=== PATIENT | female | born 2000 | race Caucasian/White ===

== ENCOUNTER 2022-02-26 13:32 | Emergency (ER) | payer OTHER, SELFPAY ==
--- NOTE | ~2022-02-26 | US_ITS ---
EXAMINATION: US PELVIS CLINICAL INFORMATION: Right lower quadrant pain with ovarian cyst and question of torsion COMPARISON: CT scan performed earlier today TECHNIQUE: Ultrasound of the pelvis is performed using both transabdominal and transvaginal transducers along with Doppler. Transvaginal imaging is performed due to inadequate visualization transabdominally. FINDINGS: Uterus: The uterus is anteverted and measures 8.2 x 4.0 x 5.4 cm. The double wall endometrial thickness is 1.2 mm. The uterus is smooth in contour and has normal myometrial echogenicity. No visible fibroid. Adnexa: Both ovaries are visualized. There is equal normal color flow to the adnexa. There is no ovarian torsion. There is no pelvic ascites or fluid collection. Right ovary measures 5.9 x 5.7 x 5.9 cm for a volume of 104 mL which includes a 5.3 x 4.9 x 4.9 cm cyst seen on the earlier CT. Left ovary measures 3.0 x 1.9 x 2.5 cm for a volume of 7.5 mL. Trace free fluid is present in the cul-de-sac US/US pelvic ovarian doppler IMPRESSION: Redemonstrated right ovarian cyst. Both ovaries demonstrate normal flow without any suggestion of torsion.
--- NOTE | ~2022-02-26 | CT_ITS ---
EXAMINATION: CT ABDOMEN AND PELVIS WITHOUT CONTRAST CLINICAL INFORMATION: Right flank pain. Evaluate for appendicitis or kidney stone. COMPARISON: None TECHNIQUE: Multidetector volumetric imaging was performed from the superior aspect of the liver through the pubic symphysis. Sagittal and coronal reformatted images were obtained on the technologist's workstation. This CT examination was performed using dose optimization techniques as appropriate, variously including the following: *Automated exposure control *Adjustment of mA and/or kV according to patient size (this includes techniques or standardized protocols for targeted exams where dose is matched to indication/reason for exam; i.e. extremities or head) *Use of iterative reconstruction technique DLP: 692 mGy-cm FINDINGS: LUNG BASES: The visualized lung bases are unremarkable. LIVER, GALLBLADDER, AND BILIARY TREE: The liver is normal in size, shape, and attenuation. No focal hepatic lesion or biliary ductal dilatation is present. Gallbladder unremarkable. PANCREAS: Unremarkable. SPLEEN: Unremarkable. ADRENAL GLANDS: Unremarkable. KIDNEYS AND URETERS: The kidneys are normal in size, shape, and attenuation. No hydronephrosis, hydroureter, or calculi seen. No perinephric stranding. BLADDER: Unremarkable. GASTROINTESTINAL TRACT: The small and large bowel are unremarkable. The appendix is normal. ABDOMINAL WALL: No significant hernia is appreciated. LYMPH NODES: Normal. VASCULAR: Unremarkable. PELVIC VISCERA: There is a 5.7 cm cyst in the right ovary. Left ovary and uterus are unremarkable. OSSEOUS STRUCTURES: Unremarkable. CT/CT abdomen pelvis wo con IMPRESSION: * Normal appendix. * No urinary calculi or hydronephrosis. * Right ovarian cyst measuring 5.7 cm. Given the patient's right abdominal pain, consider pelvic ultrasound to exclude torsion.
--- NOTE | ~2022-02-26 | US_ITS ---
EXAMINATION: US PELVIS CLINICAL INFORMATION: Right lower quadrant pain with ovarian cyst and question of torsion COMPARISON: CT scan performed earlier today TECHNIQUE: Ultrasound of the pelvis is performed using both transabdominal and transvaginal transducers along with Doppler. Transvaginal imaging is performed due to inadequate visualization transabdominally. FINDINGS: Uterus: The uterus is anteverted and measures 8.2 x 4.0 x 5.4 cm. The double wall endometrial thickness is 1.2 mm. The uterus is smooth in contour and has normal myometrial echogenicity. No visible fibroid. Adnexa: Both ovaries are visualized. There is equal normal color flow to the adnexa. There is no ovarian torsion. There is no pelvic ascites or fluid collection. Right ovary measures 5.9 x 5.7 x 5.9 cm for a volume of 104 mL which includes a 5.3 x 4.9 x 4.9 cm cyst seen on the earlier CT. Left ovary measures 3.0 x 1.9 x 2.5 cm for a volume of 7.5 mL. Trace free fluid is present in the cul-de-sac US/US pelvic and transvaginal IMPRESSION: Redemonstrated right ovarian cyst. Both ovaries demonstrate normal flow without any suggestion of torsion.
[2022-02-26 15:30] VITALS: BP 128/67; PULSE 69; RESP 18; TEMP 36.3; O2SAT 98; BMI 28.3
[2022-02-26 15:58] LABS: Appearance Urine CLEAR; Color Urine YELLOW; Glucose Urine UA NEG (NEG); Leukocyte Esterase Urine TRACE (NEG); Nitrite Urine NEG (NEG); PH 5.5 (5.0-8.0); Specific Gravity - Urine >= 1.030 (1.005-1.025); Urine Blood NEG (NEG); Urine Ketones 40 MG/DL (NEG); Urine Protein NEG (NEG-TRACE)
[2022-02-26 16:00] LABS: UPreg QC Valid YES; Urine Pregnancy NEGATIVE (NEGATIVE)
[2022-02-26 16:12] LABS: Bacteria Urine 1+ /LPF; RBC Urine 0-2 /HPF (0); Squamous Epithelial Cell Urine 1+ /LPF; WBC Urine 0-2 /HPF (0-4)
[2022-02-26 19:00] LABS: MANUAL DIFF FLAG NO
[2022-02-26 19:01] LABS: Basophils Percent Auto 0.3 % (0-2); Eosinophils Percent Auto 0.2 % (0-4); Hematocrit 40.9 % (37.0-47.0); Hemoglobin 13.8 g/dl (12.0-16.0); Imm Gran Abs Auto 0.01 X10*3/uL (0.00-0.03); Imm Gran Pct Auto 0.2 % (0.0-0.4); Lymphocytes Absolute Auto 1.8 X10*3/uL (1.2-4.9); Lymphocytes Percent Auto 28.1 % (20-40); Mean Corpuscular HGB Conc 33.7 g/dl (31.0-35.0); Mean Corpuscular Volume 83.1 fL (80.0-98.0); Mean Platelet Volume 9.3 fL (9.4-12.3); Monocytes Absolute Auto 0.3 X10*3/uL (0.1-1.2); Monocytes Percent Auto 4.9 % (2-11); Neutrophils Absolute Auto 4.3 x10*3/uL (2.0-8.3); Neutrophils Percent Auto 66.3 % (45-73); Platelet Count 383 X10*3/uL (160-400); Red Blood Count 4.92 X10*6/uL (4.20-5.50); Red Cell Distribution Width 13.7 % (11.0-16.0); White Blood Count 6.5 X10*3/uL (4.8-10.8)
[2022-02-26 19:16] LABS: Alanine Aminotransferase 22 U/L (0-31); Albumin Level 4.4 g/dL (3.5-5.0); Alkaline Phosphatase 77 U/L (39-117); Anion Gap 11 (12-20); Aspartate Amino Transferase 22 U/L (5-31); Bilirubin Total 0.5 mg/dL (0.0-1.0); Blood Urea Nitrogen 13 mg/dL (9-16); Calcium 9.5 mg/dL (8.4-10.2); Carbon Dioxide 23 mmol/L (22-29); Chloride 104 mmol/L (96-108); Creatinine Clr Calc Pharmacy 109.8; Estimated Glomerular Filt Rate > 60; Glucose Random 99 mg/dL (60-115); Potassium 4.4 mmol/L (3.3-5.1); Sodium 134 mmol/L (135-145); Total Protein 7.6 g/dL (6.5-8.0)
--- NOTE | 2022-02-26 22:17 | ED.ABDPAIN ---
HPI - Abdominal Pain General Chief Complaint: Abdominal Pain Stated Complaint: Abd pain Time Seen by Provider: 02/26/22 20:31 Source: patient Mode of arrival: ambulatory Limitations: no limitations History of Present Illness HPI narrative: 21-year-old female who presents emergency department for evaluation of lower abdominal pain and right flank pain. Patient states that around noon she had a sudden onset of severe pain. States the pain radiated across her lower abdomen and she also felt in her right lower back. She states the pain was severe on onset was 10/10. At the time my evaluation the pain was 3/10. She states the pain feels like a cramping sensation the much worse than any menstrual cramps that she has ever had. The patient had associated nausea with no vomiting. She denied fever or chills. She denied chest pain shortness of breath or dyspnea on exertion. She denied diarrhea, bloody stools or black stools. She has had no urinary frequency or dysuria. Patient took ibuprofen with only minimal relief for pain. This is her 1st episode of this type of pain. MD elicited complaint: abdominal pain (Lower abdomen) and flank pain (Right) Pertinent past history: none Onset (ago): hour(s) (2 prior to presenting to the emergency department) Pain Consistency: constant (Waxed and waned in intensity) Location: RUQ and R flank Severity: severe Pain scale (0-10): 10 Quality: cramping Exacerbating factors: nothing Relieving factors: nothing Associated symptoms: nausea Treatments prior to arrival: NSAIDs Related Data Previous Rx's Medication Instructions Recorded ondansetron 4 mg disintegrating 4 mg PO Q6-8H PRN nausea and 02/27/22 tablet vomiting #14 tabs oxycodone 5 mg tablet 5 mg PO Q4H PRN pain #14 tabs 02/27/22 Allergies Allergy/AdvReac Type Severity Reaction Status Date / Time No Known Allergies Allergy Verified 02/26/22 15:29 [No Known Allergies*] Review of Systems Review of Systems Yes all other systems are reviewed and are negative [facility] Past Medical History [facility] Narrative: Past medical history: None. Past surgical history: None. Social history: She denies tobacco use. She occasionally drinks alcohol. She denies drug use. Social History Social History Advance Directives: No Advance Directives Information Provided: No Physical Exam ED Vital Signs: Vital Signs - 24 hr 02/26/22 15:30 02/27/22 00:34 Temperature 97.3 F 98.4 F Pulse Rate 69 68 Respiratory Rate 18 18 Blood Pressure 128/67 114/61 Pulse Oximetry 98 99 Oxygen Delivery Method Room Air Room Air BMI result Body Mass Index 28.3 Const General: cooperative and no acute distress Orientation/consciousness: oriented to person and oriented to place Limitations: no limitations HENMT Head: Yes normal to inspection, Yes normocephalic and Yes atraumatic Ears: external ears normal General nose exam: Normal external nose present Face and sinus: Yes normal facial exam Mouth: Normal oral and palatal mucosa present Throat: Yes posterior oropharynx normal Eyes General: appearance normal, both eyes and all related structures Pupils: Equal, round and reactive pupils present Neck Neck: Yes normal visual inspection, Yes no lymphadenopathy, Yes trachea midline and Yes supple Chest Chest palpation & inspection: normal inspection of the chest and normal palpation of entire chest wall Resp Effort & Inspection: normal respiratory effort and able to speak in complete sentences Auscultation: clear to auscultation bilaterally Cardio Rate: regular rate Rhythm: regular rhythm Heart sounds: S1 normal heart sound present, S2 normal heart sound present and no murmurs GI Inspection: Yes normal to inspection Palpation (GI): Soft to palpation, Tenderness to palpation present (GI) in the RLQ and Rovsing's sign positive (Pain in RLQ with palpation of L LQ and epigastric area) and no guarding Auscultation: normal bowel sounds General: Yes no CVA tenderness Back/Spine/Pelvis Back: no CVA tenderness Skin General skin exam: no rashes or lesions noted Neuro General: oriented to person and oriented to place Cranial nerves: Yes CN's II-XII intact bilaterally and Yes Equal, round and reactive pupils present Cognition (Neuro): normal cognition Motor exam (neuro): 5/5 motor strength present throughout Extrem General: Yes normal to inspection Psych Appearance: grossly normal Speech and movement: Normal speech and movement present Affect: normal affect Attitude: cooperative Thought process: Normal thought process present Thought content: Normal thought content present Course Course Course Narrative: 21-year-old female who presents emergency department for evaluation of sudden onset of abdominal pain which began at noon, the pain was initially 10/10 and is now 3/10 at the time of evaluation. Patient's pain is also located in her right flank area. Patient does have right lower quadrant tenderness and referred pain to right lower quadrant with palpation of her left lower quadrant and epigastric. The patient had a CBC, CMP which were normal. Urinalysis revealed positive blood. Microscopic revealed 2 RBCs, 2 WBCs, 1+ bacteria, 1+ squamous cells. Urine test was negative. Given her abdominal exam, differential includes was not limited to appendicitis, ruptured ovarian cyst, renal colic. She was ordered to get Toradol 30 mg IV and Zofran 4 mg IV. I did order a CT scan of the abdomen pelvis without IV contrast. 2336: Radiology evaluation: CT scan of the abdomen pelvis without IV contrast was interpreted as follows by the radiologist: IMPRESSION: *? Normal appendix. *? No urinary calculi or hydronephrosis. *? Right ovarian cyst measuring 5.7 cm. Given the patient's right abdominal pain, consider pelvic ultrasound to exclude torsion. Dictated By: Bear Carrasco MD The nurse was unable to stop motion IV in the patient therefore she was ordered to get Toradol 60 mg IM and Zofran 4 mg IV. Given the radiology reading, the patient will get an Doppler ultrasound to rule out ovarian torsion. 0124: Duplex pelvic ultrasound of the ovaries was interpreted by the radiologist as follows: IMPRESSION: Redemonstrated right ovarian cyst. Both ovaries demonstrate normal flow without any suggestion of torsion. Dictated By:Abiel Block MD The patient's pain increased after the ultrasound therefore she was given oxycodone 10 mg orally. The patient will be discharged home and advised to take ibuprofen and Tylenol for pain and for pain not relieved by these medications she was given prescription for oxycodone. She was also given prescription for Zofran ODT for her nausea and vomiting. The patient was advised to follow-up with our echo technician for re-evaluation and further treatment of her ovarian cyst. MDM - Abdominal Pain Lab Data Result diagrams: 02/26/22 18:54 02/26/22 18:54 Labs: Lab Results 02/26/22 02/26/22 02/26/22 Range/Units 15:46 15:46 18:54 WBC 6.5 (4.8-10.8) X10*3/uL RBC 4.92 (4.20-5.50) X10*6/uL Hgb 13.8 (12.0-16.0) g/dl Hct 40.9 (37.0-47.0) % MCV 83.1 (80.0-98.0) fL MCH 28.0 (27.0-33.0) pg MCHC 33.7 (31.0-35.0) g/dl RDW 13.7 (11.0-16.0) % Plt Count 383 (160-400) X10*3/uL MPV 9.3 L (9.4-12.3) fL Immature Gran % (Auto) 0.2 (0.0-0.4) % Neut % (Auto) 66.3 (45-73) % Lymph % (Auto) 28.1 (20-40) % [place] % (Auto) 4.9 (2-11) % Eos % (Auto) 0.2 (0-4) % Baso % (Auto) 0.3 (0-2) % Lymph # (Auto) 1.8 (1.2-4.9) X10*3/uL [place] # (Auto) 0.3 (0.1-1.2) X10*3/uL Eos # (Auto) 0.0 (0.0-0.4) X10*3/uL Baso # (Auto) 0.0 (0.0-0.2) X10*3/uL Abs Immat Gran (auto) 0.01 (0.00-0.03) X10*3/uL Absolute Neuts (auto) 4.3 (2.0-8.3) x10*3/uL Absolute Nucleated RBC 0.000 (0.0-0.012) X10*3/uL Nucleated RBC % (auto) 0.0 (0.0-0.2) /100WBC Sodium (135-145) mmol/L Potassium (3.3-5.1) mmol/L Chloride (96-108) mmol/L Carbon Dioxide (22-29) mmol/L Anion Gap (12-20) BUN (9-16) mg/dL Creatinine (0.5-1.4) mg/dL Estim Creat Clear Calc Estimated GFR Random Glucose (60-115) mg/dL Calcium (8.4-10.2) mg/dL Total Bilirubin (0.0-1.0) mg/dL AST (5-31) U/L ALT (0-31) U/L Alkaline Phosphatase (39-117) U/L Total Protein (6.5-8.0) g/dL Albumin (3.5-5.0) g/dL Urine Color YELLOW Urine Appearance CLEAR Urine pH 5.5 (5.0-8.0) Ur Specific [place] >= 1.030 H (1.005-1.025) Urine Protein NEG (NEG-TRACE) MG/DL Urine Glucose (UA) NEG (NEG) MG/DL Urine Ketones 40 (NEG) MG/DL Urine Blood NEG (NEG) Urine Nitrite NEG (NEG) Ur Leukocyte Esterase TRACE H (NEG) Urine RBC 0-2 (0) /HPF Urine WBC 0-2 (0-4) /HPF Ur Squamous Epith Cells 1+ /LPF Urine Bacteria 1+ /LPF Urine Test NEGATIVE (NEGATIVE) 02/26/22 Range/Units 18:54 WBC (4.8-10.8) X10*3/uL RBC (4.20-5.50) X10*6/uL Hgb (12.0-16.0) g/dl Hct (37.0-47.0) % MCV (80.0-98.0) fL MCH (27.0-33.0) pg MCHC (31.0-35.0) g/dl RDW (11.0-16.0) % Plt Count (160-400) X10*3/uL MPV (9.4-12.3) fL Immature Gran % (Auto) (0.0-0.4) % Neut % (Auto) (45-73) % Lymph % (Auto) (20-40) % [place] % (Auto) (2-11) % Eos % (Auto) (0-4) % Baso % (Auto) (0-2) % Lymph # (Auto) (1.2-4.9) X10*3/uL [place] # (Auto) (0.1-1.2) X10*3/uL Eos # (Auto) (0.0-0.4) X10*3/uL Baso # (Auto) (0.0-0.2) X10*3/uL Abs Immat Gran (auto) (0.00-0.03) X10*3/uL Absolute Neuts (auto) (2.0-8.3) x10*3/uL Absolute Nucleated RBC (0.0-0.012) X10*3/uL Nucleated RBC % (auto) (0.0-0.2) /100WBC Sodium 134 L (135-145) mmol/L Potassium 4.4 (3.3-5.1) mmol/L Chloride 104 (96-108) mmol/L Carbon Dioxide 23 (22-29) mmol/L Anion Gap 11 L (12-20) BUN 13 (9-16) mg/dL Creatinine 0.76 (0.5-1.4) mg/dL Estim Creat Clear Calc 109.8 Estimated GFR > 60 Random Glucose 99 (60-115) mg/dL Calcium 9.5 (8.4-10.2) mg/dL Total Bilirubin 0.5 (0.0-1.0) mg/dL AST 22 (5-31) U/L ALT 22 (0-31) U/L Alkaline Phosphatase 77 (39-117) U/L Total Protein 7.6 (6.5-8.0) g/dL Albumin 4.4 (3.5-5.0) g/dL Urine Color Urine Appearance Urine pH (5.0-8.0) Ur Specific [place] (1.005-1.025) Urine Protein (NEG-TRACE) MG/DL Urine Glucose (UA) (NEG) MG/DL Urine Ketones (NEG) MG/DL Urine Blood (NEG) Urine Nitrite (NEG) Ur Leukocyte Esterase (NEG) Urine RBC (0) /HPF Urine WBC (0-4) /HPF Ur Squamous Epith Cells /LPF Urine Bacteria /LPF Urine Test (NEGATIVE) Discharge Plan Discharge Clinical Impression: Abdominal pain, Cyst of right ovary, Nausea Patient Disposition: Home, Self-Care Instructions: Ovarian Cyst (ED) Additional Instructions: Your laboratory evaluation was unremarkable. Your urine test was negative. Your urinalysis was unremarkable. The CT scan of your abdomen pelvis did reveal a right ovarian cyst measuring 5.7 cm. The Doppler ultrasound of your pelvis confirmed that you do have an ovarian cyst but there was no evidence of decreased blood flow to the ovaries (ovarian torsion). Take ibuprofen 200 mg pills, 3 pills every 6 hours as needed for pain. Take Tylenol (acetaminophen) 500 mg pills, 2 pills every 4-6 hours as needed for pain. For pain not relieved by ibuprofen or Tylenol take oxycodone 5 mg pills, 1 pill every 4 hours as needed for pain. Do not drive or work while taking this medication since they can cause sleepiness. Oxycodone is a narcotic medication that can be addicting. If you are concerned about addiction you can ask the pharmacist for less pills or do not get this prescription filled. Follow-up with our on-call echo technician in 1-2 weeks. Please return to the emergency department if your symptoms get worse or if you develop any symptoms that are concerning to you. Prescriptions: New ondansetron 4 mg tablet,disintegrating 4 mg PO Q6-8H PRN (Reason: nausea and vomiting) Qty: 14 0RF oxycodone 5 mg tablet 5 mg PO Q4H PRN (Reason: pain) Qty: 14 0RF Rx Instructions: Patient may request partial fill; Partial Fill upon patient request. Referrals: Andreas Joyce MD [Physician] - 2 weeks (5.7 cm right ovarian cyst, abdominal pain)
[2022-02-26] MEDS: Ketorolac Tromethamine 60 MG/2 ML VIAL IM (23:43)
[2022-02-26] MEDS: Ondansetron ODT 4 MG TAB.RAPDIS TRANSLINGU (23:43)
[2022-02-27 00:34] VITALS: BP 114/61; PULSE 68; RESP 18; TEMP 36.9; O2SAT 99
--- NOTE | 2022-02-27 01:12 | PC.NURSE ---
I assumed nursing care of Marquise upon her arrival to bed 13 from the waiting room. She presents for evaluation of sharp lower abdominal/pelvic pain x 1 day. Marquise is alert, oriented x 3, calm and cooperative. She makes eye contact with staff and is able to adequately verbalize her needs. Respirations are non-labored, RR WNL, room air sat's WNL, no cyanosis, she speaks in full sentences. She has mild nausea, no vomiting. Abdominal/pelvic pain is 4/10 here in the ED but it was much more painful earlier. We were unable to obtain peripheral IV access on Marquise. Joy ACEVEDO was aware and cancelled IV placement and requested pt be given ODT Zofran and IM Toradol. These were given. Pt has had U/S and is currently awaiting dispo. We will continue to monitor Marquise.
[2022-02-27] MEDS: oxyCODONE HCl Immed Release 5 MG TABLET 10 MG PO (01:41)
== END 2022-02-27 01:45 | disposition home or self-care (01) ==
PROVIDERS: Emergency Provider Emergency Medicine Emergency Medical Services
DX: N83.201 Unspecified ovarian cyst, right side (principal); R10.30 Lower abdominal pain, unspecified; R11.0 Nausea
CPT/HCPCS: 36415; 74176; 76830; 76856; 80053; 81001; 81025; 85025; 93975; 96372; 99284; J1885

== ENCOUNTER 2022-03-02 03:07 | Emergency (ER) | payer OTHER, SELFPAY ==
--- NOTE | 2022-03-02 03:24 | PC.NURSE ---
Pt not in [facility] when called to Triage. Security finding pt outside, pt refusing to come inside for Triage @ this time.
== END 2022-03-02 03:34 | disposition left against medical advice (07) ==
PROVIDERS: Emergency Provider Emergency Medicine; PCP Internal Medicine
DX: R10.9 Unspecified abdominal pain (principal)

== ENCOUNTER 2022-03-26 14:15 | Outpatient (REF) | payer OTHER, SELFPAY ==
[2022-03-27 12:32] LABS: CT PCR NOT DETECTED (Not Detect.); NG PCR NOT DETECTED (Not Detect.)
== END 2022-03-26 14:16 | disposition home or self-care (01) ==
LOC: HO.LAB 14:15
PROVIDERS: Visit Provider Obstetrics & Gynecology
DX: N83.209 Unspecified ovarian cyst, unspecified side (principal)
CPT/HCPCS: 87491; 87591; 99212

== ENCOUNTER 2022-07-10 10:28 | Outpatient (REF) | payer OTHER, SELFPAY | END 2022-07-10 10:29 | disposition home or self-care (01) | LOC: HO.US 10:28 | PROVIDERS: Visit Provider Obstetrics & Gynecology | DX: Z13.89 Encounter for screening for other disorder (principal) ==

== ENCOUNTER 2022-07-11 11:31 | Outpatient (REF) | payer OTHER, SELFPAY ==
--- NOTE | ~2022-07-11 | US_ITS ---
EXAMINATION: US PELVIS CLINICAL INFORMATION: Ovarian cyst COMPARISON: 02/26/2022 TECHNIQUE: Ultrasound of the pelvis is performed using both transabdominal and transvaginal transducers. Transvaginal imaging is performed due to inadequate visualization transabdominally. FINDINGS: Uterus: The uterus is anteverted and measures 9 x 4 x 4.9 cm. The double wall endometrial thickness is 0.5 mm. The uterus is smooth in contour and has normal myometrial echogenicity. No visible fibroid. Adnexa: Both ovaries are visualized. There is normal color flow to the adnexa. There is no ovarian torsion. There is no pelvic ascites or fluid collection. Right ovary measures 3.4 x 2.6 x 2.6 cm. 1.4 cm follicle present. No mass. Left ovary measures 3.6 x 2.7 x 1.8 cm. No adnexal mass. US/US pelvic and transvaginal IMPRESSION: Normal pelvic ultrasound.
== END 2022-07-11 11:32 | disposition home or self-care (01) ==
LOC: HO.US 11:31
PROVIDERS: Visit Provider Obstetrics & Gynecology
DX: N83.209 Unspecified ovarian cyst, unspecified side (principal)
CPT/HCPCS: 76830; 76856

== ENCOUNTER → 2022-09-05 08:41 | Outpatient (BNVA) | payer OTHER, SELFPAY | PROVIDERS: PCP Internal Medicine; Visit Provider Obstetrics & Gynecology | DX: N83.209 Unspecified ovarian cyst, unspecified side (principal) | CPT/HCPCS: 99212 ==

== ENCOUNTER 2025-02-03 13:56 | Outpatient (AMB) | payer OTHER, SELFPAY ==
[2025-02-03 13:57] VITALS: BP 124/76; PULSE 56; TEMP 36.9; O2SAT 100; BMI 34.9
--- NOTE | 2025-02-03 13:57 | AM.OFFWIN_ITS ---
Intake Vital Signs 02/03/25 13:57 Height 5 ft 3 in Weight 197 lb BMI 34.9 BP 124/76 Blood Pressure Location Lt brachial Position Sitting Pulse 56 Pulse Source Pulse Oximeter Temp 98.5 F Temp Source Oral Pulse Oximetry (%) 100 Oxygen Delivery Method Room Air Intake Visit Reasons: PE symptoms? Intake Note: nausea, abdominal cramping, LMP: 12/25, breast soreness, frequent urination, positive home test Patient Tobacco Use Status: Never used Tobacco Allergies No Known Allergies (No Known Allergies*) Allergy (Verified 02/03/25 14:03) Do you need a note to return to daycare/school/sports/work: Yes HPI HPI Comments History of Present Illness Details History of Present Illness - The patient is a 24-year-old female pr esenting with verification of . - Reports positive home tests and seeks confirmation of status. - Last menstrual period was on December 25, with symptoms starting approximately one month after the missed period. - Symptoms include nausea, breast tender ness, and mild cramping initially. - No vaginal bleeding or significant abd ominal pain reported. - Scheduled an appointment with an OBGYN on the of this month. - Started taking vitamins. - She denies vaginal bleeding, abd pain, or vaginal discharge. - This is her first . Physical Exam General: Cooperative, healthy appearing, comfortable, no acute distress and well developed Respiratory: Normal respiratory effort and able to speak in complete sentences. Clear to auscultation bilaterally Cardiovascular: Regular rate and rhythm. Normal S1 and S2 GI: Normal to inspection. Soft to palpation and nontender. No guarding or rebound tenderness noted. Patient was informed and verbally consented to the use of an ambient scribe for clinic note documentation during this visit. [facility] Family History Maternal Grandmother Diabetes Brother Asthma Social History Household Members: Family Housing: Apartment Alcohol intake: current Alcohol intake frequency: holidays/special occasions only Patient Tobacco Use Status: Never used Tobacco Sexual orientation: Straight/Heterosexual Gender identity: Female Review of Systems Const All systems reviewed & are unremarkable except as noted in HPI and below Physical Exam Vital Signs: Last Vital Signs Temp 98.5 F 02/03/25 13:57 Pulse 56 02/03/25 13:57 BP 124/76 02/03/25 13:57 Pulse Ox 100 02/03/25 13:57 Oxygen Delivery Method Room Air 02/03/25 13:57 BMI result Body Mass Index 34.9 Results AMB Test Urine AMB Test Urine Positive Last Edit by Cathleen Stauffer MA on 02/03 14:30 Assessment & Plan Assessment & Plan (1) : Code(s): Z34.90 - Encounter for supervision of normal , unspecified, unspecified trimester Qualifiers: Weeks of gestation: less than 8 weeks Qualified Code(s): Z3A.01 - Less than 8 weeks gestation of Plan Most likely early Plan - take vitamins daily - follow up with OBGYN Orders: Orders AMB HCG Urine Test Today Z32.01 - Encounter for test, resul t positive Coding Level of Care Code Est Pt Level 3 (78981) Diagnoses Less than 8 weeks gestation of Z3A.01 Weeks of gestation: less than 8 weeks
== END 2025-02-03 14:51 | disposition home or self-care (01) ==
PROVIDERS: PCP Internal Medicine; Visit Provider Physician Assistant Medical
DX: Z3A.01 Less than 8 weeks gestation of pregnancy (principal); Z32.01 Encounter for pregnancy test, result positive

== ENCOUNTER → 2025-02-03 13:56 | Outpatient (BNVA) | payer OTHER, SELFPAY | PROVIDERS: PCP Internal Medicine; Visit Provider Physician Assistant Medical | DX: Z34.91 Encounter for supervision of normal pregnancy, unspecified, first trimester (principal); Z3A.01 Less than 8 weeks gestation of pregnancy | CPT/HCPCS: 81025; 99212 ==